=== PATIENT | male | born 1955 | race Caucasian/White ===

== ENCOUNTER → 2021-02-01 | Outpatient (CLI) | payer OTHER ==
[~2021-02-01] MED LIST: VENTOLIN HFA 66.7 GM INH
== END ==
LOC: ECHO 13:00
DX: I71.2 Thoracic aortic aneurysm, without rupture (principal); I11.0 Hypertensive heart disease with heart failure
CPT/HCPCS: ECHO; 93306

== ENCOUNTER → 2022-02-17 | Outpatient (CLI) | payer OTHER | LOC: EXRD 10:44 | DX: M79.661 Pain in right lower leg (principal); M79.662 Pain in left lower leg; M79.89 Other specified soft tissue disorders | CPT/HCPCS: 93970 ==

== ENCOUNTER → 2022-07-26 | Outpatient (CLI) | payer MEDICARE, OTHER | LOC: KOH-I 07-25 11:30 → CT 07:38 → KOH-I 13:00 | DX: I71.2 Thoracic aortic aneurysm, without rupture (principal) | CPT/HCPCS: 71275; Q9967 ==